=== PATIENT | female | born 2000 | race Caucasian/White ===

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

== ENCOUNTER 2020-01-28 21:49 | Emergency (ER) | payer OTHER ==
[~2020-01-28] VITALS: Ht 154.9 cm; Wt 71.2 kg
[2020-01-28 22:05] VITALS: Ht 154.9 cm; Wt 71.2 kg
[2020-01-28 23:46] VITALS: BP 101/56
== END 2020-01-28 23:46 | disposition home or self-care (01) ==
LOC: ED 21:49
DX: S90.31XA Contusion of right foot, initial encounter (principal); Z88.1 Allergy status to other antibiotic agents; W22.8XXA Striking against or struck by other objects, initial encounter; Y93.89 Activity, other specified; Y92.89 Other specified places as the place of occurrence of the external cause; Y99.8 Other external cause status
CPT/HCPCS: Q0092